=== PATIENT | male | born 1945 | race Caucasian/White ===

== ENCOUNTER 2022-03-20 15:00 | Emergency (ER) | payer MEDICARE ==
[~2022-03-20 15:00] MED LIST: ASPIR-LOW81 MG PO; LIPITOR TAB 2020 MG PO; NITROSTAT0.4 MG SL; NORCO 5-325 TA1 EACH PO; NORVASC 5 MG TAB5 MG PO; PRINIVIL20 MG PO
== END 2022-03-20 17:00 | disposition expired ==
LOC: ER1 15:00
DX: I46.9 Cardiac arrest, cause unspecified (principal); I25.10 Atherosclerotic heart disease of native coronary artery without angina pectoris; I10 Essential (primary) hypertension
CPT/HCPCS: 92950; 99284; J0171